=== PATIENT | male | born 1985 | race Caucasian/White ===

== ENCOUNTER 2017-08-11 11:34 | Emergency (ER) | payer BC ==
[2017-08-11 11:45] VITALS: BP 118/75
[2017-08-11] MEDS ORDERED: BUFFERED LIDOCAINE 10 ML SYRINGE SUBQ STA (12:14)
--- NOTE | 2017-08-11 12:17 | ED Physician Documentation ---
History of Present Illness - Stated complaint Stated Complaint: LT ELBOW BONE PX/SWELLING - Chief complaint Chief Complaint: General - History obtained from History obtained from: Patient - History of Present Illness Timing: Other (2 days of left elbow pain and swelling, no associated injury. He did have a scab over it which she did pick at. He has never had MRSA. No fevers.) Review of Systems Constitutional: denies: Fever, Chills Cardiac: reports: Reviewed and negative Respiratory: reports: Reviewed and negative PD PAST MEDICAL HISTORY - Past Medical History Past Medical History: No - Past Surgical History Past Surgical History: Yes General: Appendectomy - Present Medications Home Medications: Ambulatory Orders Medication Instructions Recorded Confirmed Sulfamethoxazole/Trimethoprim 1 each PO BID 7 Days tablet 08/11/17 [Sulfamethoxazole-Tmp Ds Tablet] - Allergies Allergies/Adverse Reactions: Allergies Allergy/AdvReac Type Severity Reaction Status Date / Time No Known Drug Allergies Allergy Verified 08/11/17 11:44 - Social History Does the pt smoke?: No Smoking Status: Never smoker Does the pt have substance abuse?: No PD ED PE NORMAL - Vitals Vital signs reviewed: Yes - General General: Alert and oriented X 3, No acute distress - Extremities Extremities: Other (He has olecranon bursitis on the left, it is measuring about 2-1/2 cm round and there is an overlying scab and warmth and redness but no limited range of motion.) - Neuro Neuro: Alert and oriented X 3, Normal speech Results - Vitals Vitals: Vital Signs - 24 hr 08/11/17 11:42 Temperature 36.9 C Heart Rate 80 Respiratory 18 Rate Blood Pressure 118/75 O2 Saturation 100 Oxygen O2 Source Room air Procedures - Abscess I&D (location) L olecranon bursa Preparation: Chlorhexadine, Lidocaine 1% Incision: Incised with scalpel, Culture obtained. No: Purulent drainage ( mostly serous) Other: Pt tolerated well, Dressing applied, Antibiotic prescribed Departure - Departure Disposition: 01 Home, Self Care Clinical Impression: Olecranon bursitis of left elbow Condition: Good Record reviewed to determine appropriate education?: Yes Instructions: ED Bursitis Elbow Olecranon Prescriptions: Sulfamethoxazole/Trimethoprim [Sulfamethoxazole-Tmp Ds Tablet] 1 each PO BID 7 Days tablet Comments: We are performing a wound culture, the results should be done in 48-72 hours. If antibiotic change is necessary we will call you. Return if worse in the meantime, especially if you develop increased pain, fevers, cannot keep down the medication. Otherwise follow-up with your physician in approximately 2-3 days.
== END 2017-08-11 12:38 | disposition home or self-care (01) ==
LOC: ED 11:34
DX: M70.22 Olecranon bursitis, left elbow (principal)
CPT/HCPCS: 20600; 87070; 87205; 99283